=== PATIENT | male | born 1965 | race Caucasian/White ===

== ENCOUNTER 2017-03-05 12:10 | Inpatient (IN) | payer SELFPAY ==
[~2017-03-05] VITALS: Ht 205.7 cm; Wt 159.3 kg
[2017-03-05 12:59] VITALS: BP 155/100
[2017-03-05] MEDS ORDERED: LISI10TA2 PO (13:10)
[2017-03-05] MEDS ORDERED: LIRA0.6P2 SQ (13:10)
[2017-03-05] MEDS ORDERED: FENO160T PO (13:10)
[2017-03-05] MEDS ORDERED: INSU200I4 SQ (13:10)
[2017-03-05] MEDS ORDERED: ALBU2.5V5 NEB (13:10)
[2017-03-05] MEDS ORDERED: GLIP10TA13 PO (13:10)
[2017-03-05] MEDS ORDERED: traMADol 50 MG TABLET PO PRN (13:15)
[2017-03-05] MEDS ORDERED: ACETAMINOPHEN 500 MG TABLET PO PRN (13:15)
[2017-03-05] MEDS ORDERED: ZOLPIDEM 5 MG TABLET. PO PRN (13:15)
--- NOTE | 2017-03-05 13:58 | RAD ---
3 views left foot 02/23/2017. Clinical indication: Left foot wound. Comparison: None. Findings: There is osteolysis of the tuft of the first distal phalanx with fragmentation and age-indeterminate fracture at the base of the first phalanx. There are possible fracture lines extending into the distal first proximal phalanx. Diffuse soft tissue swelling about the foot, greatest at the first toe. There are multiple subcentimeter calcified densities in the soft tissues at the first digit. Impression: 1. Findings concerning for osteomyelitis at the distal first toe with osteolysis and fragmentation and extension into the first IP articulation cannot be excluded. 2. Age-indeterminate fractures of the first distal phalanx and probable in the first proximal phalanx. 3. Diffuse soft tissue swelling, concerning for cellulitis.
[2017-03-05] MEDS ORDERED: VANCOMYCIN 2 GM in IV NORMAL SALINE 500ML 500 ML IV ONE (14:00)
[2017-03-05 14:01] LABS: BASO # 0.1 x10^3/uL (0.0-0.2); BASO % 1 % (0-3); EOS % 0 % (0-3); HEMATOCRIT 41.3 % (39.0-53.0); HEMOGLOBIN 13.9 g/dL (13.0-17.5); LYMPH # 1.3 x10^3/uL (1.0-4.8); LYMPH % 9 % (24-48); MEAN CORPUSCULAR HEMOGLOBIN 29 pg (25-35); MEAN CORPUSCULAR HGB CONC 34 g/dL (31-37); MEAN CORPUSCULAR VOLUME 87 fL (79-100); MONO # 1.6 x10^3/uL (0.0-1.1); MONO % 11 % (0-9); NEUT # 12.3 x10^3uL (1.8-7.7); NEUT % 80 % (31-73); PLATELET COUNT 256 x10^3/uL (140-400); RED BLOOD COUNT 4.75 x10^6/uL (4.30-5.70); RED CELL DISTRIBUTION WIDTH 13.7 % (11.5-14.5); WHITE BLOOD COUNT 15.4 x10^3/uL (4.0-11.0)
[2017-03-05 14:03] VITALS: BP 143/73
[2017-03-05] MEDS ORDERED: ALBUTEROL SULFATE 2.5 MG/3 ML NEBU. NEB PRN (14:15)
[2017-03-05 14:24] LABS: ALBUMIN 2.9 g/dL (3.4-5.0); ALBUMIN/GLOBULIN RATIO 0.7 (1.0-1.7); CALCIUM 8.4 mg/dL (8.5-10.1); CREATININE 1.1 mg/dL (0.7-1.3); TOTAL BILIRUBIN 0.9 mg/dL (0.2-1.0); TOTAL PROTEIN 6.9 g/dL (6.4-8.2)
[2017-03-05 14:29] LABS: % BANDS 1 % (0-9); % BASOS 1 % (0-3); % LYMPHS 13 % (24-48); % MONOS 13 % (0-10); % SEGS 72 % (35-66); PLATELET CLUMP PRESENT; PLT ESTIMATE ADEQUATE (ADEQUATE)
[2017-03-05 14:30] LABS: TOXIC GRANULATION SLIGHT
[2017-03-05] MEDS: VANCOMYCIN PER PHARMACY MC PRN (14:39)
[2017-03-05] MEDS: HEPARIN PF for SUB-Q USE 5,000 UNIT/0.5 ML VIAL. SQ SCH ×2 (15:06→20:51)
--- NOTE | 2017-03-05 16:46 | RAD ---
Single view chest 03/05/2017 Clinical indication: PICC placement. Comparison: Single view chest 12/05/2012. Findings: There is a right-sided PICC with distal tip not visualized. Impression: Right-sided PICC in distal tip is not visualized. RPO view is recommended for further evaluation.
[2017-03-05] MEDS: HYDROcodone/APAP 7.5/325MG 1 TAB TABLET PO PRN (17:21)
--- NOTE | 2017-03-05 18:06 | RAD ---
PA and lateral chest radiograph. History: PICC line placement. Comparison: Earlier March 05, 2017. Findings: Cardiomediastinal silhouette is within normal limits for size. No pneumothorax or pleural effusion is seen. There is mild accentuation of interstitial markings. There is a right-sided PICC line with tip thought to project at the superior vena cava. Multiple thoracic levels demonstrate marginal disc osteophytes. Impression: 1. Right-sided PICC line tip is thought to project at the superior vena cava. 2. Mild accentuation of interstitial markings, may be artifact of technique or could represent mild fibrotic change. Electronically signed by: Angelo Skinner MD (03/05/2017 6:03 PM) [facility]
[2017-03-05 19:30] VITALS: BP 123/73
[2017-03-05] MEDS: LACTOBACILLUS RHAMNOSUS GG 1 CAPSULE. PO SCH (20:50)
[2017-03-05] MEDS: INSULIN DETEMIR 300 UNITS/3 ML INSULN.PEN. SQ SCH (20:57)
[2017-03-06 00:15] VITALS: BP 118/71
[2017-03-06] MEDS: VANCOMYCIN 2 GM in IV NORMAL SALINE 500ML 500 ML IV SCH ×2 (01:46→13:00)
[2017-03-06] MEDS: HEPARIN PF for SUB-Q USE 5,000 UNIT/0.5 ML VIAL. SQ SCH ×3 (05:15→20:06)
[2017-03-06 05:37] LABS: BASO # 0.1 x10^3/uL (0.0-0.2); BASO % 1 % (0-3); EOS # 0.1 x10^3/uL (0.0-0.7); EOS % 1 % (0-3); HEMATOCRIT 37.8 % (39.0-53.0); HEMOGLOBIN 12.9 g/dL (13.0-17.5); LYMPH % 20 % (24-48); MEAN CORPUSCULAR HEMOGLOBIN 29 pg (25-35); MEAN CORPUSCULAR HGB CONC 34 g/dL (31-37); MEAN CORPUSCULAR VOLUME 86 fL (79-100); MONO # 1.1 x10^3/uL (0.0-1.1); MONO % 10 % (0-9); NEUT # 7.1 x10^3uL (1.8-7.7); NEUT % 68 % (31-73); PLATELET COUNT 238 x10^3/uL (140-400); RED BLOOD COUNT 4.39 x10^6/uL (4.30-5.70); RED CELL DISTRIBUTION WIDTH 14.2 % (11.5-14.5); WHITE BLOOD COUNT 10.5 x10^3/uL (4.0-11.0)
[2017-03-06 05:48] VITALS: BP 101/63
[2017-03-06 05:51] LABS: ALBUMIN 2.5 g/dL (3.4-5.0); ALBUMIN/GLOBULIN RATIO 0.5 (1.0-1.7); CALCIUM 8.4 mg/dL (8.5-10.1); CREATININE 0.9 mg/dL (0.7-1.3); GFR 88.3; POTASSIUM 3.9 mmol/L (3.5-5.1); TOTAL BILIRUBIN 0.9 mg/dL (0.2-1.0); TOTAL PROTEIN 7.2 g/dL (6.4-8.2)
[2017-03-06] MEDS: FENOFIBRATE NANOCRYSTALLIZED 145 MG TABLET PO SCH (08:40)
[2017-03-06] MEDS: glipiZIDE 10 MG TABLET PO SCH (08:40)
[2017-03-06] MEDS: LISINOPRIL 10 MG TABLET PO SCH (08:40)
[2017-03-06] MEDS: LACTOBACILLUS RHAMNOSUS GG 1 CAPSULE. PO SCH ×2 (08:40→19:59)
[2017-03-06] MEDS: NON FORMULARY ITEM (Liraglutide (Victoza 3-Pak) 1.8 MG) SQ SCH (08:42)
[2017-03-06] MEDS ORDERED: PNEUMOC CONJ VACC 23-VALENT 0.5 ML VIAL. VAX IM ONE (09:00)
[2017-03-06] MEDS ORDERED: FLU VACC QS2017-18 (36MOS+)/PF 0.5 ML SYRINGE. VAX IM ONE (09:00)
[2017-03-06 10:35] VITALS: BP 113/66
[2017-03-06] MEDS ORDERED: IOHEXOL 300 MG/ML 75 ML VIAL. IV ONE (11:00)
--- NOTE | 2017-03-06 14:23 | RAD ---
Three-phase bone scan, 03/06/2017: History: Cellulitis, osteomyelitis Imaging of the feet was performed following IV injection of 27.0 mCi of technetium 99m MDP. The dynamic blood flow study demonstrates generalized hyperemia involving the left foot compared to the right, most prominent in the distal aspect of the foot medially. The blood pool phase shows that the most severe hyperemia on the left involves the great toe. The delayed images demonstrate markedly increased activity in the region of the interphalangeal joint of the left great toe, more intense than that seen on the blood pool image. The findings are compatible with osteomyelitis and correlate well with the destructive changes evident in this region on the plain radiographs of 03/05/2017. There is mildly increased activity at several other toes bilaterally and at the left first MTP joint, likely due to arthritis. IMPRESSION: Evidence of osteomyelitis involving the left great toe centered at the IP joint level.
--- NOTE | 2017-03-06 14:40 | RAD ---
CTA of the chest with contrast, 03/06/2017: History: Elevated d-dimer Multidetector CT imaging was performed following an IV bolus injection of iodinated contrast material. Multiplanar reconstructions were produced including coronal MIP images. The degree of opacification of the pulmonary arteries is suboptimal. The main pulmonary artery demonstrates a density of 190 Hounsfield units. No filling defects are seen in the main or lobar pulmonary arteries to suggest pulmonary emboli. Many of the segmental and smaller pulmonary arteries are not adequately opacified for diagnostic purposes. The thoracic aorta is unremarkable. No mediastinal or hilar adenopathy is seen. Minimal dependent opacities in the lungs are compatible with atelectasis. No pulmonary mass or significant consolidation is seen. No pleural fluid is evident. The liver is of lower than normal density compatible with hepatic steatosis. The spleen is incompletely visualized but appears to be at the upper limits of normal in size. A 3 cm subcutaneous density in the upper abdominal chest wall anteriorly on the left is probably a skin related lesion such as a sebaceous cyst IMPRESSION: 1. No CT evidence of central pulmonary emboli, although the degree of opacification of the pulmonary arteries was suboptimal. 2. Mild dependent atelectasis in both lungs. 3. Hepatic steatosis. PQRS Compliance Statement: One or more of the following individualized dose reduction techniques were utilized for this examination: 1. Automated exposure control 2. Adjustment of the mA and/or kV according to patient size 3. Use of iterative reconstruction technique
[2017-03-06 14:51] VITALS: BP 118/74
--- NOTE | 2017-03-06 15:55 | RAD ---
Left lower extremity venous ultrasound, 03/06/2017 : History: Elevated d-dimer, left leg swelling Duplex evaluation including grayscale, color flow and spectral Doppler analysis was performed. The femoral and popliteal veins show no filling defects to suggest DVT. The visualized calf veins are unremarkable. A mildly enlarged lymph node is noted in the upper thigh measuring 14 x 36 mm. A left inguinal lymph node of borderline size is noted. IMPRESSION: There is no sonographic evidence of deep vein thrombosis in the left lower extremity
--- NOTE | 2017-03-06 16:51 | RAD ---
Left lower extremity arterial duplex ultrasound. 03/06/2017 Indication: Left foot wound. Comparison study: None Discussion: Ultrasound evaluation of left lower extremity arteries was performed. This includes color Doppler imaging spectral analysis. Left common femoral artery: Normal waveforms and velocities. Left superficial femoral artery: Normal waveforms and velocities. Left popliteal artery: Normal waveforms and velocities. Left posterior tibial artery: Normal waveforms and velocities Left posterior tibial artery: Normal waveforms and velocities Impression: Unremarkable sonographic appearance of major arteries of the left lower extremity.
[2017-03-06 19:36] VITALS: BP 115/72
[2017-03-06] MEDS: INSULIN DETEMIR 300 UNITS/3 ML INSULN.PEN. SQ SCH (20:08)
[2017-03-06] MEDS: HYDROcodone/APAP 7.5/325MG 1 TAB TABLET PO PRN (22:18)
[2017-03-06 23:06] VITALS: BP 115/78
[2017-03-07 01:11] LABS: VANC TR 7.1 mcg/mL (10.0-20.0)
[2017-03-07] MEDS: VANCOMYCIN 2 GM in IV NORMAL SALINE 500ML 500 ML IV SCH (01:33)
--- NOTE | 2017-03-07 03:23 | PN ---
DATE: SUBJECTIVE: A 51-year-old gentleman in with severe osteomyelitis and cellulitis to the left great toe. The patient is receiving IV vancomycin and Levaquin, per protocol. The patient is resting comfortably, says he is feeling somewhat better but toes are still markedly swollen and erythematous. He is scheduled for a bone scan today to make further evaluation on him as indicated. He had a sed rate in the 80s. He continues to be monitored. Sugars are down in the 140s. Otherwise, he is resting fairly comfortably. D-dimer was elevated at 0.96 (he is on heparin and continue to monitor him accordingly). PHYSICAL EXAMINATION: VITAL SIGNS: Otherwise, vital signs today include that of a blood /60, respiratory rate 20, pulse 80. He has run a low-grade temperature of 99.5. PLAN: So, we will continue to monitor him accordingly on such. He will get arterial Dopplers of the leg as well as will get a CTA and D-dimer. EUSEBIA OLIVA MD DR: AVINASH/kassie JOB#: [id number] / [id number]
[2017-03-07 06:01] VITALS: BP 104/67
[2017-03-07] MEDS: HYDROcodone/APAP 7.5/325MG 1 TAB TABLET PO PRN (06:15)
[2017-03-07] MEDS: HEPARIN PF for SUB-Q USE 5,000 UNIT/0.5 ML VIAL. SQ SCH (06:15)
[2017-03-07 08:09] LABS: HEMOGLOBIN A1C 9.8 % (4.8-5.6)
[2017-03-07] MEDS: FENOFIBRATE NANOCRYSTALLIZED 145 MG TABLET PO SCH (08:39)
[2017-03-07] MEDS: LISINOPRIL 10 MG TABLET PO SCH (08:39)
[2017-03-07] MEDS: LACTOBACILLUS RHAMNOSUS GG 1 CAPSULE. PO SCH (08:39)
[2017-03-07] MEDS: glipiZIDE 10 MG TABLET PO SCH (08:40)
[2017-03-07] MEDS ORDERED: CLOTRIMAZOLE 1% TP SCH (09:00)
[2017-03-07] MEDS: NON FORMULARY ITEM (Liraglutide (Victoza 3-Pak) 1.8 MG) SQ SCH (09:00)
[2017-03-07 09:54] VITALS: BP 133/71
[2017-03-07] MEDS: VANCOMYCIN PER PHARMACY MC PRN (11:46)
[2017-03-07 13:10] VITALS: BP 135/79
[2017-03-07] MEDS ORDERED: VANCOMYCIN 2 GM in IV NORMAL SALINE 500ML 500 ML IV SCH (14:00)
== END 2017-03-07 16:00 | disposition short-term general hospital (02) | DRG 541 ==
LOC: 1 SOUTH 12:10
PROVIDERS: ADMIT Family Medicine; ATTEND Family Medicine
PROC: 02HV33Z Insertion of Infusion Device into Superior Vena Cava, Percutaneous Approach (ICD-10-PCS; principal; 2017-03-05)
PROC: B548ZZA Ultrasonography of Superior Vena Cava, Guidance (ICD-10-PCS; 2017-03-05)
DX: M86.172 Other acute osteomyelitis, left ankle and foot (principal); L03.032 Cellulitis of left toe
CPT/HCPCS: 36415; 36569; 71045; 71046; 71275; 73630; 78315; 80053; 80202; 82947; 83036; 83605; 85007; 85025; 85379; 85651; 87040; 87070; 87205; 90686; 90732; 93926; 93971; 96374; A9503; J1815; J1956; J3370; J7040; Q9967